=== PATIENT | female | born 1975 | race Native Hawaiian/Other Pacific Islander ===

== ENCOUNTER 2016-07-08 12:08 | Outpatient (CLI) | payer OTHER | END 2016-07-08 14:08 | disposition home or self-care (01) | LOC: RAD 12:08 | DX: M25.462 Effusion, left knee (principal) ==

== ENCOUNTER 2016-07-22 20:28 | Emergency (ER) | payer OTHER ==
[~2016-07-22] VITALS: Ht 152.4 cm; Wt 136.1 kg
[2016-07-22 22:03] VITALS: BP 150/88; TEMP 98.6
== END 2016-07-22 21:48 | disposition home or self-care (01) ==
LOC: ED 20:28
DX: S10.83XA Contusion of other specified part of neck, initial encounter (principal); X58.XXXA Exposure to other specified factors, initial encounter; Y93.89 Activity, other specified; Y92.89 Other specified places as the place of occurrence of the external cause; M47.892 Other spondylosis, cervical region
CPT/HCPCS: 96372; 99283; J1885

== ENCOUNTER 2017-05-14 17:49 | Observation (INO) | payer OTHER ==
[~2017-05-14] VITALS: Ht 152.4 cm; Wt 126.3 kg
[2017-05-14 21:51] LABS: PLATELET COUNT 257 K/uL (152-353)
[2017-05-14 22:02] LABS: POTASSIUM 3.6 mmol/L (3.6-5.2); SODIUM 136 mmol/L (136-145)
[2017-05-14 22:52] VITALS: BP 116/78; TEMP 98.8; Ht 152.4 cm; Wt 126.3 kg
[2017-05-15] VITALS: BP 126/56; TEMP 99.1
[2017-05-15 04:00] VITALS: BP 136/53; TEMP 98.6
[2017-05-15 08:00] VITALS: BP 129/79; TEMP 98.1
[2017-05-15 11:44] VITALS: BP 132/86; TEMP 98.2
[2017-05-15 16:00] VITALS: BP 140/88; TEMP 98.4
[2017-05-15 20:00] VITALS: BP 149/80; TEMP 97.4
[2017-05-16] VITALS: BP 106/63; TEMP 98
[2017-05-16 04:00] VITALS: BP 141/84; TEMP 98
[2017-05-16 05:33] LABS: PLATELET COUNT 227 K/uL (152-353)
[2017-05-16 06:19] LABS: POTASSIUM 4.3 mmol/L (3.6-5.2); SODIUM 138 mmol/L (136-145)
[2017-05-16 08:00] VITALS: BP 119/58; TEMP 98
[2017-05-16] MEDS ORDERED: CARTIA XT120 MG/24 PO (11:31)
== END 2017-05-16 14:00 | disposition home or self-care (01) ==
LOC: MED/SURG 17:49
PROVIDERS: ADMIT Family Medicine
DX: J45.901 Unspecified asthma with (acute) exacerbation (principal); J20.8 Acute bronchitis due to other specified organisms; K64.4 Residual hemorrhoidal skin tags; E66.01 Morbid (severe) obesity due to excess calories
CPT/HCPCS: 36415; 80053; 83735; 84100; 85027; 87040; 93005; 94640; 94664; 94760; 96365; 96366; 96367; 96374; 96375; 99220; G0378; G0379; J1885; J2930

== ENCOUNTER 2017-11-07 13:56 | Outpatient (CLI) | payer OTHER ==
[~2017-11-07 13:56] MED LIST: CARTIA XT120 MG/24 PO
== END 2017-11-07 20:35 | disposition home or self-care (01) ==
LOC: RAD 13:56
DX: J20.8 Acute bronchitis due to other specified organisms (principal)

== ENCOUNTER 2018-02-12 13:06 | Outpatient (CLI) | payer OTHER | END 2018-02-12 23:54 | disposition home or self-care (01) | LOC: RAD 13:06 | DX: J18.9 Pneumonia, unspecified organism (principal) ==

== ENCOUNTER 2019-02-28 07:52 | Outpatient (CLI) | payer OTHER ==
[2019-02-28 09:13] LABS: PLATELET COUNT 228 K/uL (152-353)
[2019-02-28 10:10] LABS: POTASSIUM 3.9 mmol/L (3.6-5.2)
== END 2019-02-28 22:57 | disposition home or self-care (01) ==
LOC: LABW 07:52
PROVIDERS: Nurse Practitioner Family
DX: K91.2 Postsurgical malabsorption, not elsewhere classified (principal)
CPT/HCPCS: 36415; 80053; 82306; 82607; 82728; 82746; 83540; 83550; 84425; 84550; 85027

== ENCOUNTER 2019-06-06 08:44 | Outpatient (CLI) | payer OTHER | END 2019-06-06 19:38 | disposition home or self-care (01) | LOC: MRI 08:44 | DX: M54.14 Radiculopathy, thoracic region (principal) ==

== ENCOUNTER 2019-07-15 07:27 | Outpatient (CLI) | payer OTHER ==
[2019-07-15 10:02] LABS: PLATELET COUNT 228 K/uL (152-353)
== END 2019-07-15 19:23 | disposition home or self-care (01) ==
LOC: LABW 07:27
PROVIDERS: Nurse Practitioner Family
DX: K91.2 Postsurgical malabsorption, not elsewhere classified (principal)
CPT/HCPCS: 36415; 80053; 82306; 82607; 82746; 83540; 83550; 84425; 84550; 85027

== ENCOUNTER 2020-07-02 10:00 | Outpatient (CLI) | payer OTHER | END 2020-07-02 23:59 | disposition home or self-care (01) | LOC: MAMMO 10:00 | PROVIDERS: ATTEND Nurse Practitioner Family | DX: Z12.31 Encounter for screening mammogram for malignant neoplasm of breast (principal) ==

== ENCOUNTER 2020-07-27 10:33 | Outpatient (CLI) | payer OTHER | END 2020-07-27 23:01 | disposition home or self-care (01) | LOC: MAMMO 10:33 | PROVIDERS: ATTEND Nurse Practitioner | DX: R92.8 Other abnormal and inconclusive findings on diagnostic imaging of breast (principal) ==

== ENCOUNTER 2021-02-18 11:14 | Outpatient (CLI) | payer OTHER ==
[~2021-02-18] VITALS: Ht 152.4 cm; Wt 90.7 kg
== END 2021-02-18 19:32 | disposition home or self-care (01) ==
LOC: INF 11:14
PROVIDERS: ATTEND Family Medicine
DX: Z23 Encounter for immunization (principal); Z03.89 Encounter for observation for other suspected diseases and conditions ruled out; U07.1 COVID-19
CPT/HCPCS: 96365; M0244

== ENCOUNTER 2021-05-11 09:29 | Outpatient (CLI) | payer OTHER | END 2021-05-11 20:15 | disposition home or self-care (01) | LOC: RAD 09:29 | PROVIDERS: ATTEND Nurse Practitioner Family | DX: M25.512 Pain in left shoulder (principal); M54.6 Pain in thoracic spine; M54.50 Low back pain, unspecified ==

== ENCOUNTER 2021-07-05 18:29 | Emergency (ER) | payer OTHER ==
[~2021-07-05] VITALS: Ht 152.4 cm; Wt 93.0 kg
[2021-07-05 21:06] LABS: PLATELET COUNT 249 K/uL (152-353)
[2021-07-05 21:24] LABS: POTASSIUM 4.3 mmol/L (3.6-5.2)
[2021-07-06 00:35] VITALS: BP 131/69; TEMP 98.9
== END 2021-07-06 00:40 | disposition home or self-care (01) ==
LOC: ED 18:29
PROVIDERS: Emergency Medicine
DX: I20.8 Other forms of angina pectoris (principal); F17.210 Nicotine dependence, cigarettes, uncomplicated
CPT/HCPCS: 36415; 80053; 84484; 85027; 93005; 96374; 96375; 99284; J2270

== ENCOUNTER 2021-07-15 13:34 | Outpatient (CLI) | payer OTHER | END 2021-07-15 23:11 | disposition home or self-care (01) | LOC: MRI 13:34 | PROVIDERS: ATTEND Nurse Practitioner Family | DX: M47.16 Other spondylosis with myelopathy, lumbar region (principal); M47.814 Spondylosis without myelopathy or radiculopathy, thoracic region ==

== ENCOUNTER 2022-02-24 10:29 | Outpatient (CLI) | payer OTHER | END 2022-02-24 19:08 | disposition home or self-care (01) | LOC: RAD 10:29 | PROVIDERS: ATTEND Nurse Practitioner Family | DX: M25.531 Pain in right wrist (principal); M79.644 Pain in right finger(s) ==

== ENCOUNTER 2023-01-15 18:30 | Outpatient (CLI) | payer OTHER | END 2023-01-15 22:00 | disposition home or self-care (01) | LOC: RAD 18:30 | PROVIDERS: ATTEND Nurse Practitioner Family | DX: M54.6 Pain in thoracic spine (principal); M54.59 Other low back pain ==

== ENCOUNTER 2023-08-02 08:15 | Outpatient (CLI) | payer OTHER | END 2023-08-02 19:23 | disposition home or self-care (01) | LOC: US 08:15 | PROVIDERS: ATTEND Nurse Practitioner Family | DX: R10.11 Right upper quadrant pain (principal) ==